=== PATIENT | female | born 1955 | race Caucasian/White ===

== ENCOUNTER → 2017-02-14 | Outpatient (CLI) | payer OTHER | LOC: MAMMO 16:04 | DX: Z12.31 Encounter for screening mammogram for malignant neoplasm of breast (principal) | CPT/HCPCS: G0202 ==

== ENCOUNTER → 2018-07-01 | Day surgery (SDC) | payer BC | LOC: MSO 08:33 | DX: Z12.11 Encounter for screening for malignant neoplasm of colon (principal); Z87.891 Personal history of nicotine dependence; Z79.899 Other long term (current) drug therapy | CPT/HCPCS: 00812; J2704; J7120 ==

== ENCOUNTER → 2018-07-02 | Outpatient (CLI) | payer BC | LOC: MAMMO 10:45 | DX: Z12.31 Encounter for screening mammogram for malignant neoplasm of breast (principal) ==

== ENCOUNTER → 2018-07-08 | Outpatient (CLI) | payer BC | LOC: MAMMO 08:17 | DX: R92.8 Other abnormal and inconclusive findings on diagnostic imaging of breast (principal) ==

== ENCOUNTER → 2019-06-25 | Outpatient (CLI) | payer BC | LOC: MAMMO 11:18 | DX: Z12.31 Encounter for screening mammogram for malignant neoplasm of breast (principal); N64.89 Other specified disorders of breast ==

== ENCOUNTER → 2019-06-30 | Outpatient (CLI) | payer BC | LOC: MAMMO 07:00 | DX: N63.12 Unspecified lump in the right breast, upper inner quadrant (principal); N63.10 Unspecified lump in the right breast, unspecified quadrant; N64.89 Other specified disorders of breast; R92.2 Inconclusive mammogram ==

== ENCOUNTER → 2019-07-07 | Outpatient (CLI) | payer BC | LOC: RAD 07:14 | DX: N63.10 Unspecified lump in the right breast, unspecified quadrant (principal) | CPT/HCPCS: 15989; 15990; A4648 ==

== ENCOUNTER → 2020-06-25 | Outpatient (CLI) | payer MEDICARE, BC ==
[2020-06-25 11:08] LABS: ALBUMIN 4.2 g/dL (3.4-4.8); POTASSIUM 3.6 mmol/L (3.5-5.1)
[2020-06-25 11:09] LABS: CALCIUM 9.6 mg/dL (8.3-10.5)
[2020-06-25 11:10] LABS: TOTAL PROTEIN 7.2 g/dL (6.2-8.1)
[2020-06-25 11:11] LABS: HEMATOCRIT 42.7 % (37.0-47.0); HEMOGLOBIN 14.1 g/dL (12.5-16.0); MEAN CELL VOLUME 93 fl (78-100); MEAN CORPUSCULAR HEMOGLOBIN 31 pg (27-31); MEAN CORPUSCULAR HGB CONC 33 g/dL (33-37); MEAN PLATELET VOLUME 11.1 fl (7.4-10.4); PLATELET COUNT 218 K/mm3 (130-400); RED BLOOD COUNT 4.57 M/mm3 (4.10-5.30); RED CELL DISTRIBUTION WIDTH 12.2 % (11.5-14.5); WHITE BLOOD COUNT 4.5 K/mm3 (4.8-10.8)
[2020-06-25 11:12] LABS: TOTAL BILIRUBIN 0.6 mg/dL (0.2-1.2)
[2020-06-25 11:42] LABS: LYMPHOCYTE 50 % (20-51); MONOCYTE 11 % (3-10); NEUTROPHILS 38 % (42-75)
== END ==
LOC: LAB 10:32
PROVIDERS: Physician Assistant
DX: Z00.00 Encounter for general adult medical examination without abnormal findings (principal); Z12.31 Encounter for screening mammogram for malignant neoplasm of breast; Z13.220 Encounter for screening for lipoid disorders; Z13.29 Encounter for screening for other suspected endocrine disorder; Z76.89 Persons encountering health services in other specified circumstances; T78.49XA Other allergy, initial encounter; E78.5 Hyperlipidemia, unspecified; K90.9 Intestinal malabsorption, unspecified; R42 Dizziness and giddiness

== ENCOUNTER → 2020-07-08 | Outpatient (CLI) | payer MEDICARE, BC | LOC: MAMMO 09:46 | DX: N64.89 Other specified disorders of breast (principal) ==

== ENCOUNTER → 2020-07-15 | Outpatient (CLI) | payer MEDICARE, BC | LOC: RAD 14:15 | DX: N60.01 Solitary cyst of right breast (principal) ==

== ENCOUNTER → 2021-07-22 | Outpatient (CLI) | payer MEDICARE, BC ==
[2021-07-22 10:06] LABS: BASO # 0.04 K/mm3 (0.02-0.10); EOS # 0.06 K/mm3 (0.04-0.40); EOS % 1.3 % (1.0-5.0); HEMATOCRIT 42.5 % (37.0-47.0); HEMOGLOBIN 13.9 g/dL (12.5-16.0); LYMPH# 2.24 K/mm3 (1.50-4.00); MEAN CELL VOLUME 93 fl (78-100); MEAN CORPUSCULAR HEMOGLOBIN 30 pg (27-31); MEAN CORPUSCULAR HGB CONC 33 g/dL (33-37); MEAN PLATELET VOLUME 10.5 fl (7.4-10.4); MONO # 0.47 K/mm3 (0.20-0.80); NEU # 1.68 K/mm3 (1.40-6.50); PLATELET COUNT 243 K/mm3 (130-400); RED BLOOD COUNT 4.57 M/mm3 (4.10-5.30); RED CELL DISTRIBUTION WIDTH 12.6 % (11.5-14.5); WHITE BLOOD COUNT 4.5 K/mm3 (4.8-10.8)
[2021-07-22 10:24] LABS: ALBUMIN 4.2 g/dL (3.4-4.8)
[2021-07-22 10:25] LABS: CALCIUM 10.2 mg/dL (8.3-10.5)
[2021-07-22 10:27] LABS: TOTAL PROTEIN 7.7 g/dL (6.2-8.1)
[2021-07-22 10:29] LABS: TOTAL BILIRUBIN 0.6 mg/dL (0.2-1.2)
== END ==
LOC: LAB 09:52
PROVIDERS: Family Medicine
DX: Z00.00 Encounter for general adult medical examination without abnormal findings (principal); E55.9 Vitamin D deficiency, unspecified; E78.5 Hyperlipidemia, unspecified

== ENCOUNTER → 2021-08-11 | Outpatient (CLI) | payer MEDICARE, BC | LOC: MAMMO 10:19 | DX: Z12.31 Encounter for screening mammogram for malignant neoplasm of breast (principal) ==

== ENCOUNTER → 2023-09-12 | Outpatient (CLI) | payer MEDICARE, BC | LOC: MAMMO 09:00 | DX: Z12.31 Encounter for screening mammogram for malignant neoplasm of breast (principal) ==

== ENCOUNTER → 2024-09-08 | Outpatient (CLI) | payer MEDICARE, BC ==
[2024-09-08 15:25] LABS: BASO # 0.04 K/mm3 (0.02-0.10); EOS # 0.11 K/mm3 (0.04-0.40); EOS % 1.9 % (1.0-5.0); HEMATOCRIT 42.3 % (37.0-47.0); LYMPH# 2.81 K/mm3 (1.50-4.00); MEAN CELL VOLUME 95 fl (78-100); MEAN CORPUSCULAR HEMOGLOBIN 32 pg (27-31); MEAN CORPUSCULAR HGB CONC 33 g/dL (33-37); MEAN PLATELET VOLUME 10.4 fl (7.4-10.4); MONO # 0.56 K/mm3 (0.20-0.80); NEU # 2.21 K/mm3 (1.40-6.50); PLATELET COUNT 223 K/mm3 (130-400); RED BLOOD COUNT 4.45 M/mm3 (4.10-5.30); RED CELL DISTRIBUTION WIDTH 12.2 % (11.5-14.5); WHITE BLOOD COUNT 5.7 K/mm3 (4.8-10.8)
[2024-09-08 15:33] LABS: ALBUMIN 4.2 g/dL (3.4-4.8)
[2024-09-08 15:34] LABS: CALCIUM 10.2 mg/dL (8.3-10.5)
[2024-09-08 15:37] LABS: TOTAL BILIRUBIN 0.5 mg/dL (0.2-1.2)
== END ==
LOC: LAB 15:14
PROVIDERS: Family Medicine
DX: I10 Essential (primary) hypertension (principal); E55.9 Vitamin D deficiency, unspecified; E78.5 Hyperlipidemia, unspecified

== ENCOUNTER → 2024-09-17 | Outpatient (CLI) | payer MEDICARE, BC | LOC: MAMMO 08:30 | DX: Z12.31 Encounter for screening mammogram for malignant neoplasm of breast (principal) ==